=== PATIENT | female | born 1995 | race Caucasian/White ===

== ENCOUNTER → 2020-08-25 | Outpatient (CLI) | payer BC | END | disposition home or self-care (01) | LOC: RAD 03:14 | PROVIDERS: ATTEND Internal Medicine | DX: R05 Cough (principal) ==

== ENCOUNTER → 2021-12-02 | Outpatient (CLI) | payer SELFPAY ==
[2021-12-02 07:57] LABS: BASO # 0.1 10*3/uL (0.0-0.1); BASO % 0.7 % (0.0-1.0); EOS # 0.7 10*3/uL (0.0-0.4); EOS % 5.8 % (1.0-4.0); HEMATOCRIT 40.5 % (37.0-47.0); LYMPH # 4.2 10*3/uL (1.3-4.4); LYMPH % 35.9 % (27.0-41.0); MEAN CELL VOLUME 89.2 fl (81.0-99.0); MEAN CORPUSCULAR HGB 30.2 pg (27.0-31.0); MEAN CORPUSCULAR HGB CONC 33.8 g/dl (33.0-37.0); MEAN PLATELET VOLUME 11.6 fl (9.6-12.3); MONO # 1.1 10*3/uL (0.1-1.0); MONO % 9.3 % (3.0-9.0); NEUT # 5.6 10*3/uL (2.3-7.9); PLATELET COUNT AUTOMATED 240 10*3/uL (130-400); RED BLOOD COUNT 4.54 10*6/uL (4.10-5.10); RED CELL DISTRI WIDTH 12.6 % (0-14.5); WHITE BLOOD COUNT 11.7 10*3/uL (4.8-10.8)
[2021-12-02 08:15] LABS: ALKALINE PHOSPHATASE 58 U/L (45-117); BUN 10 mg/dl (7-24); CHLORIDE 109 mmol/L (98-107); CREATININE 0.79 mg/dL (0.55-1.02); POTASSIUM 3.7 mmol/L (3.5-5.1); SGOT/AST 9 IU/L (3-35); SGPT/ALT 18 U/L (12-78); SODIUM 142 mmol/L (136-145); TOTAL PROTEIN 7.7 gm/dL (6.4-8.2)
== END | disposition home or self-care (01) ==
LOC: LAB 07:30
PROVIDERS: ATTEND Emergency Medicine
DX: R53.83 Other fatigue (principal)

== ENCOUNTER 2022-06-26 20:12 | Emergency (ER) | payer OTHER ==
[~2022-06-26] VITALS: Ht 170.1 cm; Wt 77.1 kg
[2022-06-26] MEDS ORDERED: AMOX-CLAV 875-1 EACH PO (21:42)
[2022-06-26] MEDS ORDERED: PREDNISONE20 M1 PO (21:42)
[2022-06-26] MEDS ORDERED: DIFLUCAN150 MG PO (21:42)
== END 2022-06-26 21:49 | disposition home or self-care (01) ==
LOC: ED 20:12
DX: H66.91 Otitis media, unspecified, right ear (principal); J01.90 Acute sinusitis, unspecified

== ENCOUNTER 2023-06-09 02:49 | Emergency (ER) | payer OTHER ==
[~2023-06-09] VITALS: Ht 170.1 cm; Wt 72.6 kg
[~2023-06-09 02:49] MED LIST: AMOX-CLAV 875-1 EACH PO; DIFLUCAN150 MG PO; PREDNISONE20 M1 PO
[2023-06-10 07:07] LABS: HEPATITIS B SURFACE AB Reactive (.); HEPATITIS B SURFACE AG Negative (Negative)
== END 2023-06-09 05:11 | disposition home or self-care (01) ==
LOC: ED 02:49
PROVIDERS: Emergency Medicine
DX: Z77.21 Contact with and (suspected) exposure to potentially hazardous body fluids (principal)